=== PATIENT | female | born 1990 | race Caucasian/White ===

== ENCOUNTER 2019-02-01 09:58 | Emergency (ER) | payer SELFPAY ==
[~2019-02-01] VITALS: Ht 167.6 cm; Wt 92.1 kg
[2019-02-01 10:09] VITALS: BP 138/93
[2019-02-01 11:45] LABS: BASOPHILS % (AUTO) 0.7 % (0.0-2.0); EOSINOPHILS # (AUTO) 0.1 K/uL (0-0.4); EOSINOPHILS % (AUTO) 1.2 % (0.0-4.0); HEMATOCRIT 37.3 % (36-48); HEMOGLOBIN 11.9 g/dL (12.0-16.0); LYMPHOCYTES % (AUTO) 31.1 % (20.5-51.1); MEAN CORPUSCULAR HEMOGLOBIN 24 pg (27-31); MEAN CORPUSCULAR HGB CONC 32 g/dL (33-37); MEAN CORPUSCULAR VOLUME 76.3 fL (80-94); MONOCYTES # (AUTO) 0.4 K/uL (0.8-1.0); MONOCYTES % (AUTO) 6.7 % (1.7-9.3); NEUTROPHILS # (AUTO) 3.9 K/uL (1.8-7.7); NEUTROPHILS % (AUTO) 60.3 % (42.2-75.2); PLATELET COUNT (AUTO) 298 K/uL (140-450); RED BLOOD CELL COUNT(AUTO) 4.88 MIL/uL (4.20-5.40); RED CELL DISTRIBUTION WIDTH 14.7 % (11.6-13.7); WHITE BLOOD COUNT (AUTO) 6.5 K/uL (4.8-10.8)
[2019-02-01 12:16] LABS: ANION GAP 14.6 (8-16); CARBON DIOXIDE 23.3 mmol/L (21-32); CREATININE 0.6 mg/dL (0.6-1.3); POTASSIUM 3.9 mmol/L (3.5-5.1)
[2019-02-01 12:22] LABS: ALBUMIN 3.6 g/dL (3.4-5.0); TOTAL BILIRUBIN 0.3 mg/dL (0.0-1.0)
[2019-02-01 13:00] VITALS: BP 135/87
== END 2019-02-01 13:00 | disposition home or self-care (01) ==
LOC: MED 09:58
DX: N93.9 Abnormal uterine and vaginal bleeding, unspecified (principal)
CPT/HCPCS: 36415; 76801; 80053; 81002; 81025; 84702; 85025; 99284; Q0092

== ENCOUNTER 2019-03-28 22:18 | Emergency (ER) | payer SELFPAY ==
--- NOTE | 2019-03-28 22:53 | NUR ---
PT CALLED IN LOBBY AND OUTSIDE WITH NO ANSWER.
--- NOTE | 2019-03-28 23:10 | NUR ---
PT CALLED IN LOBBY AND OUTSIDE WITH NO ANSWER.
--- NOTE | 2019-03-28 23:30 | NUR ---
PATIENT LEFT WITHOUT BEING SEEN BY DR. HOLLAND. NO FURTHER CARE PROVIDED FOR PATIENT.
== END 2019-03-28 22:53 | disposition left against medical advice (07) ==
LOC: MED 22:18
DX: Z53.21 Procedure and treatment not carried out due to patient leaving prior to being seen by health care provider (principal)

== ENCOUNTER 2019-06-16 20:40 | Emergency (ER) | payer MEDICAID, OTHER ==
[~2019-06-16] VITALS: Ht 167.6 cm; Wt 86.2 kg
[2019-06-16 20:40] VITALS: BP 134/90
--- NOTE | 2019-06-16 20:43 | NUR ---
TO LOBBY A/W BED AMBULATORY
[2019-06-16 21:59] LABS: BASOPHILS # (AUTO) 0.1 K/uL (0.00-0.22); BASOPHILS % (AUTO) 0.7 % (0.0-2.0); EOSINOPHILS # (AUTO) 0.1 K/uL (0-0.4); EOSINOPHILS % (AUTO) 0.9 % (0.0-4.0); HEMATOCRIT 38.2 % (36-48); HEMOGLOBIN 12.2 g/dL (12.0-16.0); LYMPHOCYTES # (AUTO) 2.8 K/uL (2.5-16.5); LYMPHOCYTES % (AUTO) 32.4 % (20.5-51.1); MEAN CORPUSCULAR HEMOGLOBIN 25 pg (27-31); MEAN CORPUSCULAR HGB CONC 32 g/dL (33-37); MEAN CORPUSCULAR VOLUME 76.6 fL (80-94); MONOCYTES # (AUTO) 0.6 K/uL (0.8-1.0); MONOCYTES % (AUTO) 6.5 % (1.7-9.3); NEUTROPHILS # (AUTO) 5.1 K/uL (1.8-7.7); NEUTROPHILS % (AUTO) 59.5 % (42.2-75.2); PLATELET COUNT (AUTO) 344 K/uL (140-450); RED BLOOD CELL COUNT(AUTO) 4.99 MIL/uL (4.20-5.40); RED CELL DISTRIBUTION WIDTH 14.8 % (11.6-13.7); WHITE BLOOD COUNT (AUTO) 8.6 K/uL (4.8-10.8)
[2019-06-16 22:15] LABS: ANION GAP 14.7 (8-16); CREATININE 0.5 mg/dL (0.6-1.3); POTASSIUM 3.7 mmol/L (3.5-5.1)
[2019-06-16 22:16] LABS: APPEARANCE,URINE SL CLOUDY (CLEAR); BILIRUBIN,URINE NEGATIVE (NEGATIVE); BLOOD, URINE NEGATIVE (NEGATIVE); COLOR,URINE YELLOW (YELLOW); LEUKOCYTE ESTERASE ,URINE TRACE (NEGATIVE); NITRITE, URINE NEGATIVE (NEGATIVE); UGLUCOSE NEGATIVE (NEGATIVE)
--- NOTE | 2019-06-16 22:37 | NUR ---
PT RETURNED FROM US VIA W/C. PT ABLE TO AMBULATE TO BED INDEPENDENTLY WITH STEADY GAIT.
--- NOTE | 2019-06-16 22:40 | NUR ---
PT 28 Y/O FEMALE BIB SELF FOR C/O BILAT PELVIC PAIN 8 THAT RADIATES TO LOWER BACK X 1 DAY. NO DISCHARGE NOTED. DENIES PAINFUL URINATION. PT ALSO HAS C/O SUPRAPUBIC TENDERNESS. PT DENIES TAKING ANY MEDICATIONS FOR PAIN AT HOME. PT LAST MENSTRAL PERIOD WAS APRIL 07, 2019. ABD IS SOFT, ROUND, AND NON TENDER. DENIES N/V/D. AFEBRILE. DENIES COUGH. RESPIRATIONS ARE EVEN AND UNALBORED. SKIN IS WARM AND DRY TO TOUCH. FAMILY AT BEDSIDE.
[2019-06-16 23:15] LABS: RBC,URINE 0-5 /HPF (0-5); WBC,URINE 16-25 (MOD) /HPF (0-5)
--- NOTE | 2019-06-16 23:50 | NUR ---
DR. MALDONADO AT BEDSIDE.
--- NOTE | 2019-06-17 00:05 | NUR ---
PT RESTING IN BED EYES OPEN AND LOOKING AT PHONE. RESPIRATIONS ARE EVEN AND UNLABORED. SKIN IS WARM AND DRY TO TOUCH. PT STATES PELVIC PAIN IS CURRENTLY 5/10 AND TOLERABLE. BED LOCKED AND IN LOWEST POSITION.
--- NOTE | 2019-06-17 00:18 | NUR ---
DR MALDONADO AT BEDSIDE.
[2019-06-17 00:24] VITALS: BP 128/84
== END 2019-06-17 00:25 | disposition home or self-care (01) ==
LOC: MED 20:40
DX: O26.891 Other specified pregnancy related conditions, first trimester (principal); O23.31 Infections of other parts of urinary tract in pregnancy, first trimester; O34.81 Maternal care for other abnormalities of pelvic organs, first trimester; N83.291 Other ovarian cyst, right side; Z3A.01 Less than 8 weeks gestation of pregnancy
CPT/HCPCS: 36415; 76801; 80048; 81001; 81025; 84702; 85025; 86900; 86901; 87086; 87186; 99284; Q0092